=== PATIENT | female | born 1930 | race Caucasian/White ===

== ENCOUNTER → 2017-02-26 | Outpatient (CLI) | payer MEDICARE, BC ==
[~2017-02-26] MED LIST: ASPIRIN EC81 MG PO; CAL PO; CALTRATE 600+D1 EAC2 PO; CENTRUM SILVER1 TAB PO; CHLOR PO; CREON DR 12,001 EACH PO; LANOXIN (DIGI250 MCG PO; LEVOTHROID(SYN75 MCG PO; MAG PO; NYSTATIN500000 UNI PO; PRILOSEC20 MG PO; SERTRALINE HCL100 MG PO; ULTRAM50 MG PO; VITAMIN D1000 UNIT PO; ZOCOR10 MG PO
== END | disposition disaster alternative care site (69) ==
LOC: LGSMG 11:31
DX: N18.3 Chronic kidney disease, stage 3 (moderate) (principal)

== ENCOUNTER → 2017-04-26 | Day surgery (SDC) | payer MEDICARE, BC ==
[~2017-04-26] VITALS: Ht 168.9 cm; Wt 49.3 kg
== END | disposition disaster alternative care site (69) ==
LOC: GPOC 04-25 15:00 → GEND 08:21
PROC: 0DB48ZX Excision of Esophagogastric Junction, Via Natural or Artificial Opening Endoscopic, Diagnostic (ICD-10-PCS; principal; 2017-04-26)
DX: B37.9 Candidiasis, unspecified (principal); R13.10 Dysphagia, unspecified; E78.00 Pure hypercholesterolemia, unspecified; F32.9 Major depressive disorder, single episode, unspecified; F41.9 Anxiety disorder, unspecified; M81.0 Age-related osteoporosis without current pathological fracture; D64.9 Anemia, unspecified; Z88.1 Allergy status to other antibiotic agents; Z90.49 Acquired absence of other specified parts of digestive tract; Z90.710 Acquired absence of both cervix and uterus; Z98.890 Other specified postprocedural states
CPT/HCPCS: J2001; J7030